=== PATIENT | male | born 1950 ===

== ENCOUNTER → 2019-01-10 19:38 | Outpatient (ROUT) | payer MEDICARE, OTHER, SELFPAY ==
[2019-01-10 19:47] LABS: Add Manual Diff / Slide Review NO; Basophils Absolute Auto 100 /uL (0-100); Basophils Percent Auto 1.1 % (0-2); Eosinophils Absolute Auto 300 /uL (0-450); Hematocrit 37.6 % (41-53); Hemoglobin 12.9 g/dL (13.5-17.5); Lymphocytes Absolute Auto 600 /uL (1100-4500); Mean Corpuscular HGB Conc 34.2 % (30-36); Mean Corpuscular Volume 102.6 fL (80-100); Monocytes Absolute Auto 700 /uL (0-900); Monocytes Percent Auto 15.2 % (3-14); Neutrophils Absolute Auto 3200 /uL (1500-7000); Neutrophils Percent Auto 64.7 % (50-75); Platelet Count 211 X10^3/uL (150-400); Red Blood Cell Count 3.67 X10^6/uL (4.5-5.9); Red Cell Distribution Width 14.3 % (11.6-14.8); White Blood Cell Count 4.9 X10^3/uL (4.5-11.0)
[2019-01-10 19:53] LABS: Magnesium 1.5 mg/dL (1.6-2.3)
[2019-01-10 20:30] LABS: Ferritin 63.5 ng/mL (17.9-464)
[2019-01-10 21:00] LABS: Folate 4.1 ng/mL (2.76-20.0); Vitamin B12 314 pg/mL (239-931)
== END ==
PROVIDERS: Visit Provider Family Medicine
DX: E83.42 Hypomagnesemia (principal); D64.9 Anemia, unspecified
CPT/HCPCS: 36415; 82607; 82728; 82746; 83735; 85025